=== PATIENT | male | born 1940 | race Caucasian/White ===

== ENCOUNTER 2020-02-26 11:18 | Emergency (ER) | payer MEDICARE, SELFPAY ==
[2020-02-26] VITALS (45 sets, daily range): BP systolic 112–156; BP diastolic 61–80; PULSE 56–69; RESP 10–20; TEMP 37.1; O2SAT 87–98
--- NOTE | 2020-02-26 | DI.RAD_ITS ---
EXAM: XR PORTABLE CHEST AP CLINICAL HISTORY: s/p thoro/ left lung cancer TECHNIQUE: 2D digital imaging was performed. COMPARISON: CT CT CHEST PE CTA from 02/26/2020 FINDINGS: MEDIASTINUM: Normal. HEART: Normal. PULMONARY VASCULATURE: Normal. LUNGS: No consolidation. Lungs hyperinflated consistent with underlying COPD. PLEURAL SPACE: No pleural effusion or pneumothorax. BONE:Normal. OTHER FINDINGS:Normal. IMPRESSION: No pneumothorax. DATA REPOSITORY: RADIATION DOSE DELIVERED:
--- NOTE | 2020-02-26 11:15 | RT.EKG_ITS ---
APPROVED REPORT Exam: Resting ECG Patient Location: E HR:65 bpm ECG Measurements Heart Rate 65 AXIS [place] 185 P 51 QRSd 97 QRS 6 QT 387 T 44 QTc 403 <Conclusion> Sinus rhythm...normal P axis, V-rate 60- 99 Probable left atrial enlargement...P >50mS, <-0.10mV V1 Low voltage, extremity and precordial leads...extremity<0.5mV, precordial<1.0mV. No acute ST elevation or depression.
--- NOTE | 2020-02-26 11:28 | ED.GENADUL_ITS ---
Discharge Plan Disposition Patient Disposition: HOME Condition: Improving Discharge Details Chief Complaint: SOB Clinical Impression: Recurrent left pleural effusion, Status post thoracentesis, History of lung cancer Primary Care Provider: Danielle,Local ED Provider: Ami Haney Home Meds and New Rx's Prescriptions: Continued Tagrisso 80 mg Tablet 80 mg PO DAILY RF: 0 pantoprazole 40 mg Tablet,Delayed Release (Dr/Ec) 40 mg PO DAILY RF: 0 ursodiol 250 mg Tablet 120 mg PO BID RF: 0 propranolol 120 mg Capsule,Extended Release 24 Hr 120 mg PO DAILY RF: 0 magnesium 30 mg Tablet 50 mg PO BID RF: 0 cholecalciferol (vitamin D3) [Vitamin D3] 25 mcg (1,000 unit) Capsule 1,000 unit PO DIRECTED RF: 0 sumatriptan succinate [Imitrex] 50 mg Tablet 50 mg PO PRN PRNRF: 0 loperamide [Imodium A-D] 2 mg Tablet 2 mg PO PRN PRNRF: 0 fexofenadine [Brigette Allergy] 180 mg Tablet 180 mg PO PRN PRNRF: 0 Discharge Instructions Instructions: Pleural Effusion (ED), Thoracentesis (DC) Additional Instructions: No lifting over 20 pounds or strenuous activity for the next 24 hours. No straining to have a bowel movement. You can take the Band-Aid off tomorrow and shower within 24 hours. You can apply ice to the affected area several times daily for 20 minutes at a time. You can take Tylenol as needed and directed for pain. Follow-up with Dr. Avila in the surgery office next Sunday at 9 AM. You can call her office with any questions or concerns at [phone]. Return immediately to the emergency department if you develop any worsening or concerning symptoms. Referrals: Narcisa Avila DO [OSTEOPATHIC DOCTOR] - Discharge Data Discharge Date/Time-TO BE ENTERED AT DEPARTURE: 02/26/20 17:20 Discharge Physician: Ami Haney Medical Decision Making 8080 -- 79-year-old male visiting from [place] since February 03 in quarantine for the past 14 days with a history of lung cancer treated with gene therapy Tagrisso for the past 9 months presents with dyspnea on exertion for the past week. Vitals within normal limits. Slightly diminished breath sounds left lung base. No leg edema. No signs of respiratory distress and speaking in full sentences. EKG on arrival notes a rate of 65, no acute ST ischemic changes. Differential diagnosis includes chronic shortness of breath associated with lung cancer, pleural effusion, ACS, PE, pneumonia, CHF. Will place an IV, screening labs, CT chest to rule out PE and reassess. 1445 --labs and imaging reviewed. Normal white blood cell count and hemoglobin. Troponin negative. CT chest negative for PE but does note a moderately large left-sided pleural effusion. Patient provided a report for a CAT scan of the chest in January 2020 from [place] which noted similar size of his left upper lobe lung lesion at 1.2 cm but a small left-sided pleural effusion at that time. As patient is hemodynamically stable and appears in no acute respiratory distress, do not see an indication for admission, however may benefit from bedside thoracentesis. Patient states he would prefer to go home and does not want to stay in the hospital. Case discussed with Dr. Avila who will come to the ED to perform this. After discussion with patient and , he is agreeable to stay for thoracentesis. 163 --Dr. Avila performed thoracentesis at bedside and removed 600 cc of fluid. Patient has significant relief of symptoms and is requesting to go home. Repeat chest x-ray no acute findings. Patient will follow-up with Dr. Avila in her office next Sunday at 9 AM. Usual and customary return precautions given prior to discharge. Medical Records Medical records reviewed: Yes I reviewed the patient's medical records. Imaging Data Radiologic Study: Radiologist's impression: CT CHEST PE CTA CLINICAL HISTORY: sob, h/o lung cancer. TECHNIQUE: Imaging Protocol: Axial CT angiography was performed with multi- slice acquisition and multi-planar and/or 3D reconstructions. CONTRAST MATERIAL: Intravenous: Omnipaque 350 Contrast volume:61 COMPARISON: No exams were available for comparison FINDINGS: Pulmonary Arteries: No evidence of filling defect to suggest pulmonary emboli. Tracheobronchial tree: Patent where visualized. Mediastinum and [place]: No dominant adenopathy or fluid collection. Pulmonary parenchyma: 1.2 cm spiculated mass in the left upper lobe. Atelectatic changes seen in the left lower lobe secondary to the patient's left pleural effusion. Pleura: Moderately large left pleural effusion with subjacent atelectasis. No pneumothorax. Heart: Mildly enlarged. Moderate coronary artery calcification. No significant pericardial effusion. Aorta: Thoracic aorta non-dilated. Atherosclerosis. No dissection. Upper abdomen: Unremarkable. Bones: Degenerative changes.Sclerotic focus in the T7 vertebral body. Soft tissues: Bilateral gynecomastia. IMPRESSION: 1. No evidence of pulmonary embolism, thoracic aortic dissection or aneurysm. 2. 1.2 cm spiculated mass in the left upper lobe consistent with the patient's known carcinoma. 3. Sclerotic focus in the T7 vertebral body. Bone island versus metastasis. Correlation with prior examinations is recommended. 4. Moderately large left pleural effusion with subjacent atelectasis. 5. The findings were discussed with the emergency department on the date of the examination. Lab Data Lab results reviewed: Yes I reviewed the patient's lab results. Labs: 02/26/20 16:00 Pleural Body Fluid Culture - Pending 02/26/20 16:00 Pleural Gram Stain - Final Laboratory Tests Range/Units 02/26/20 02/26/20 11:25 11:25 WBC (4.4-10.8) k/cumm 6.64 RBC (4.50-6.00) m/cumm 5.05 Hgb (13.5-17.5) g/dL 14.0 Hct (40.0-50.0) % 42.7 MCV (80-95) fL 84.6 MCH (27.0-33.0) pg 27.7 MCHC (32.0-36.0) g/dL 32.8 RDW (11.8-14.1) % 14.7 H Plt Count (130-400) x1000/uL 127 L MPV (8.0-11.0) fL 11.4 H Immature Gran % % 0.3 Neutrophils % 75.7 Lymphocytes % 12.0 Monocytes % 10.1 Eosinophils % 1.4 Basophils % 0.5 Absolute Neutrophils (1.2-6.7) k/cumm 5.03 Absolute Lymphocytes (1.2-3.4) k/cumm 0.80 L Absolute Monocytes (0.11-0.7) k/cumm 0.67 Absolute Eosinophils (0.0-0.7) k/cumm 0.09 Absolute Basophils (0.0-0.2) k/cumm 0.03 Sodium (136-145) mmol/L 139 Potassium (3.5-5.1) mmol/L 3.9 Chloride (98-107) mmol/L 105 Carbon Dioxide (21.0-32.0) mmol/L 25.6 Anion Gap (3-11) mmol/L 8.4 BUN (7-18) mg/dL 21 H Creatinine (0.70-1.30) mg/dL 1.50 H Estimated GFR/1.73 m2 (mL/min/1.73m2) 45.26 Glucose (74-106) mg/dL 103 Calcium (8.5-10.1) mg/dL 8.6 Magnesium (1.8-2.4) mg/dL 2.2 Total Bilirubin (0.2-1.0) mg/dL 0.9 AST (15-37) U/L 14 L ALT (16-63) U/L 13 L Alkaline Phosphatase (46-116) U/L 82 Troponin I (<0.06) ng/mL < 0.05 Total Protein (6.4-8.2) g/dL 6.8 Albumin (3.4-5.0) g/dL 3.4 ECG Data Attestation: I personally reviewed and interpreted this ECG (s) as follows: Interpretation: Rate of 65, sinus, no acute ST elevation or depression. [place] 185. QTc 4 3. QRS 97. HPI General Mode of arrival: ambulatory . Date/Time Provider Initiated Documentation: 02/26/20 11:25 . Limitations to Documentation: no limitations . Information obtained by: patient . HPI Narrative: Patient is a 79-year-old male with a history of lung cancer currently under gene therapy treatment with Tagrisso who presents to the emergency department for shortness of breath for the past week. He states that shortness of breath is worse with exertion and sometimes better with rest. He occasionally admits to chest tightness which is substernal and states is currently 1/10. He admits to an occasional dry cough but denies any fever. He also admits to diminished appetite over the past week. Patient states his lung cancer was diagnosed in April 2019 in [place]. He is being followed by his primary care doctor and oncologist in [facility]. He has been under the gene therapy treatment for the past 9 months. Patient states he had been doing well for the past several months without any complaint of shortness of breath until the last week. He states the car ride from [place] was approximately 11 hours long and states he took a break several ho urs in to stay overnight somewhere. He denies any leg pain or swelling or complaint of pleuritic chest pain. He also admits to a history of pleural effusion in May 2019 which was treated with thoracentesis. He states he came here from [place] February 03 and has been in quarantine for the first 14 days. He states his daughter recently traveled from [place] to visit him and tested negative for COVID. Related Data Home Medications Medication Instructions Recorded Confirmed Tagrisso 80 mg PO DAILY 02/26/20 02/26/20 cholecalciferol (vitamin D3) 1,000 unit PO DIRECTED 02/26/20 02/26/20 [Vitamin D3] fexofenadine [Brigette Allergy] 180 mg PO PRN PRN 02/26/20 02/26/20 loperamide [Imodium A-D] 2 mg PO PRN PRN 02/26/20 02/26/20 magnesium 50 mg PO BID 02/26/20 02/26/20 pantoprazole 40 mg PO DAILY 02/26/20 02/26/20 propranolol 120 mg PO DAILY 02/26/20 02/26/20 sumatriptan succinate [Imitrex] 50 mg PO PRN PRN 02/26/20 02/26/20 ursodiol 120 mg PO BID 02/26/20 02/26/20 Allergies Allergy/AdvReac Type Severity Reaction Status Date / Time No Known Allergies Allergy Unverified 02/26/20 11:27 General Stated Complaint: SOB BALDEMAR: 2 Review of Systems All systems reviewed & are unremarkable except as noted in HPI and below Constitutional Constitutional: Reports as per HPI, Denies chills and Denies fever(s) Eyes Eyes: Denies blurry vision ENT Ears, Nose, Mouth, and Throat: Denies dizziness, Denies sore throat and Denies throat swelling Cardiovascular Cardiovascular: Reports chest pain and Reports dyspnea Respiratory Respiratory: Denies cough and Reports dyspnea Gastrointestinal Gastrointestinal: Denies abdominal pain, Denies diarrhea and Denies vomiting Genitourinary Genitourinary: Denies hematuria and Denies dysuria Musculoskeletal Musculoskeletal: Denies back pain and Denies numbness Integumentary/Breasts Skin/Breast: Denies lesions and Denies rash Neurologic Neurologic: Denies dizziness, Denies localized weakness and Denies numbness Allergic/Immunologic Allergic/Immunologic: Denies throat swelling [facility] Medical History (Updated 02/26/20 @ 16:44 by Ami Haney DO) GERD (gastroesophageal reflux disease) (Chronic) Lung cancer (Chronic) Diagnosed April 2019 Pleural effusion (Acute) May 2019 treated with thoracocentesis Surgical History (Updated 02/26/20 @ 16:52 by Ami Haney DO) History of knee replacement (Chronic) Hx of cholecystectomy (Chronic) Social History (Updated 02/26/20 @ 12:41 by Ami Haney DO) Smoking/Tobacco Use Status: Former Tobacco Use Alcohol Intake: current Alcohol Intake frequency: a few times a week Alcohol type: wine Substance use type: does not use Details: quit smoking 60yrs ago Do you feel safe at home: Yes Do you feel safe in your relationship?: Yes Exam Const General: cooperative, healthy appearing and no acute distress HENMT Head: normal to inspection Face and sinus: normal facial exam Eyes General: appearance normal, both eyes and all related structures EOM: EOM intact bilaterally Neck Neck: normal visual inspection and No submandibular swelling Lymphatic: no lymphadenopathy noted Chest Chest: normal inspection of the chest and no tenderness Resp Effort & Inspection: normal respiratory effort and able to speak in complete sentences Auscultation: diminished lung sounds on the left in the lower lung kohler (slight compared to R side) Cardio Rate: regular rate Rhythm: regular rhythm GI Inspection: normal to inspection Palpation: soft, not firm, not rigid and nontender Auscultation: normal bowel sounds Back/Spine/Pelvis Pelvis: no pain with anterior-posterior compression Skin General skin exam: no rashes or lesions noted Neuro General: patient alert, patient awake and patient oriented x3 Cognition: normal cognition Speech: speech normal Motor: muscle tone normal throughout Sensory Exam: no sensory deficits noted Extrem General: normal to inspection, full ROM, capillary refill normal, no calf tenderness, no calf tenderness bilaterally and no edema Psych Appearance: grossly normal Mental Status: mental status grossly normal Speech and Movement: speech and movement normal Affect: normal affect Course Vital Signs Vital signs: Vital Signs Temperature 98.8 F 02/26/20 11:19 Pulse 69 02/26/20 11:19 Respiratory Rate 20 02/26/20 11:19 Blood Pressure 144/71 H 02/26/20 11:19 Pulse Oximetry 96 02/26/20 11:19 Temperature 98.8 F 02/26/20 11:19 Temperature Source Skin 02/26/20 11:19 Pulse 69 02/26/20 11:19 Respiratory Rate 20 02/26/20 11:19 Blood Pressure 144/71 H 02/26/20 11:19 Pulse Oximetry 96 02/26/20 11:19 Oxygen Delivery Method Room Air 02/26/20 11:19 Oxygen Flow Rate 0 02/26/20 11:19 Pain Level 3 02/26/20 11:19 Comment 02/26/20 11:19
[2020-02-26 11:46] LABS: Abs Immature Grans 0.02 k/cumm (0.0-0.09); Absolute Basophil Count 0.03 k/cumm (0.0-0.2); Absolute Eosinophil Count 0.09 k/cumm (0.0-0.7); Absolute Monocyte Count 0.67 k/cumm (0.11-0.7); Absolute Neutrophil Count 5.03 k/cumm (1.2-6.7); Basophils % 0.5; Eosinophils % 1.4; HCT 42.7 % (40.0-50.0); Immature Grans % 0.3 %; Mean Corp. HGB Concentration 32.8 g/dL (32.0-36.0); Mean Corpuscular Hemoglobin 27.7 pg (27.0-33.0); Mean Corpuscular Volume 84.6 fL (80-95); Mean Platelet Volume 11.4 fL (8.0-11.0); Monocytes % 10.1; Neutrophils % 75.7; Platelet Count 127 x1000/uL (130-400); RBC 5.05 m/cumm (4.50-6.00); RBC Distribution Width 14.7 % (11.8-14.1); White Blood Cell Count 6.64 k/cumm (4.4-10.8)
[2020-02-26 12:07] LABS: ALT 13 U/L (16-63); AST 14 U/L (15-37); Albumin 3.4 g/dL (3.4-5.0); Alkaline Phosphatase 82 U/L (46-116); Anion Gap 8.4 mmol/L (3-11); BUN 21 mg/dL (7-18); Bilirubin, Total 0.9 mg/dL (0.2-1.0); CO2 25.6 mmol/L (21.0-32.0); Calcium 8.6 mg/dL (8.5-10.1); Chloride 105 mmol/L (98-107); Estimated GFR 45.26 (mL/min/1.73m2); Glucose 103 mg/dL (74-106); Magnesium 2.2 mg/dL (1.8-2.4); Potassium 3.9 mmol/L (3.5-5.1); Sodium 139 mmol/L (136-145); Total Protein 6.8 g/dL (6.4-8.2)
[2020-02-26 12:11] LABS: Troponin I < 0.05 ng/mL (<0.06)
--- NOTE | 2020-02-26 12:30 | DI.CT_ITS ---
EXAM: CT CHEST PE CTA CLINICAL HISTORY: sob, h/o lung cancer. TECHNIQUE: Imaging Protocol: Axial CT angiography was performed with multi-slice acquisition and mu lti-planar and/or 3D reconstructions. CONTRAST MATERIAL: Intravenous: Omnipaque 350 Contrast volume:61 COMPARISON: No exams were available for comparison FINDINGS: Pulmonary Arteries: No evidence of filling defect to suggest pulmonary emboli. Tracheobronchial tree: Patent where visualized. Mediastinum and [place]: No dominant adenopathy or fluid collection. Pulmonary parenchyma: 1.2 cm spiculated mass in the left upper lobe. Atelectatic changes seen in the left lower lobe secondary to the patient's left pleural effusion. Pleura: Moderately large left pleural effusion with subjacent atelectasis. No pneumothorax. Heart: Mildly enlarged. Moderate coronary artery calcification. No significant pericardial effusion . Aorta: Thoracic aorta non-dilated. Atherosclerosis. No dissection. Upper abdomen: Unremarkable. Bones: Degenerative changes.Sclerotic focus in the T7 vertebral body. Soft tissues: Bilateral gynecomastia. IMPRESSION: 1. No evidence of pulmonary embolism, thoracic aortic dissection or aneurysm. 2. 1.2 cm spiculated mass in the left upper lobe consistent with the patient's known carcinoma. 3. Sclerotic focus in the T7 vertebral body. Bone island versus metastasis. Correlation with prior examinations is recommended. 4. Moderately large left pleural effusion with subjacent atelectasis. 5. The findings were discussed with the emergency department on the date of the examination. RADIATION DOSE DELIVERED: Total DLP DATA REPOSITORY: All CT scans at this facility are submitted to the National Radiology Data Registry (NRDR) Dose Index Registry (DIR) with the [employer] (ACR). RADIATION OPTIMIZATION: All CT scans at this facility use at least one of these dose optimization te chniques: automated exposure control; mA and/or kV adjustment per patient size (includes targeted exa ms where dose is matched to clinical indication); or iterative reconstruction.
[2020-02-26] MEDS: Omnipaque 350 MG/ML 100 ML BTL IJ (12:57)
[2020-02-26] MEDS: Normal Saline 500 ML IV (13:16)
--- NOTE | 2020-02-26 16:00 | PAPNONF_PTH ---
PATIENT: ABE RAI LOC: [facility] U#:[id number] AGE/SX: 79/M ROOM: RE02/26/[address]: Ami Haney : 1940 BED: DIS: 02/26/2020 SPEC #: [id number] RECD: 02/26/20 17:45 STATUS: VALENTE REQ #: [id number] KESHAWN: 02/26/20 16:[address]: Ami Haney DEPT: [facility] Cytology RECD BY: Felisha Serrato ENTERED: 02/26/20 17:46 SP TYPE: JEANINE POP DR: No Local Tissues: 1 - BODY FLUID CYTO(NOT S/U/N/EM)[facility] Procedures: BODY FLUID CYTO(NOT SPU/UR/NIP/ENDOM)[facility] Comments: [id number] (TOTAL VOLUME = 50 ml's ~ SENT FRESH)
--- NOTE | 2020-02-26 16:43 | DI.VRAD_ITS ---
PROCEDURE INFORMATION: Exam: XR Chest, 1 View Exam date and time: 02/26/2020 4:17 PM Age: 79 years old Clinical indication: Device placement; Chest tube; Prior surgery; Patient HX: Has lung CA TECHNIQUE: Imaging protocol: XR of the chest Views: 1 view. COMPARISON: CT CHEST PE CTA 02/26/2020 12:51 PM FINDINGS: Lungs: Lungs hyperinflated suggestive of COPD. No consolidation. Pleural space: Unremarkable. No pleural effusion. No pneumothorax. Heart/Mediastinum: Unremarkable. No cardiomegaly. Bones/joints: Unremarkable. IMPRESSION: COPD Dictated and Authenticated by: Gerson Jordan MD. Ordering:GEORGETTE Brewster MD
--- NOTE | 2020-02-26 16:50 | W.SURGCON ---
Date of service: 02/26/20 Time of Service: 16:51 Assessment and Plan Assessment and plan (1) Recurrent left pleural effusion: Status: Acute Assessment and plan: will send fluid for cytology 600cc bloody fluid removed today. will review pt care in office f/u and make sure he is oncologist is aware. pt did have a CT done today- but there is too much fluid to view the tumor. Will review when he had last PET. Repeat may be warranted vs repeat CT once the fluid is removed. Will have repeat CXR prior to office visit. (2) History of lung cancer: Status: Acute History of Present Illness Narrative: pt has a hx of lung cancer. He is a former smoker. He was Dg and treated lastsu/fall. Stage 4. He does not know type or results of last PET scan. He is on tagrisso - immunomodulator. He denies rash/mouth pain. He has no abominal pain. He has some mild diarrhea off and on. No more than 2-3/dya and no blood. No wrose than usual. he has been eating. When first diagnosed- he had problems w/ pleural effusions and had PluerX cath in at one point for home drianage. He has not had to do that since June. He comes to the ED today c/o SOB. no covid exposure that he is aware of. No cough/fevers/loss of taste. Consults Requesting physician: Ami Haney Review of Systems All systems reviewed & are unremarkable except as noted in HPI and below PFSH Medical History GERD (gastroesophageal reflux disease) (Chronic) Lung cancer (Chronic) Diagnosed April 2019 Pleural effusion (Acute) May 2019 treated with thoracocentesis Surgical History History of knee replacement (Chronic) Hx of cholecystectomy (Chronic) Social History Smoking/Tobacco Use Status: Former Tobacco Use Alcohol Intake: current Alcohol Intake frequency: a few times a week Alcohol type: wine Substance use type: does not use Details: quit smoking 60yrs ago Do you feel safe at home: Yes Do you feel safe in your relationship?: Yes Exam Const General: cooperative, healthy appearing, comfortable, no acute distress, well developed and well groomed Nutritional Appearance: average body habitus and well nourished Orientation: alert, awake and oriented x3 [facility] Head: normal to inspection, normocephalic and atraumatic Ears: hearing grossly normal bilaterally and external ears normal General nose exam: external nose normal Face and sinus: normal facial exam and sinuses nontender Mouth: oral mucosae normal, lip normal, tongue normal and moist mucous membranes Teeth and gingiva: dentition normal Eyes General: appearance normal, both eyes and all related structures Conjunctivae: conjunctivae normal Sclera: sclerae normal Pupils: PERRL Neck Neck: normal visual inspection and full ROM Chest Chest: abnormal inspection of the chest Other: Post Sx changes noted. Resp Effort & Inspection: normal respiratory effort, able to speak in complete sentences, no cough, no nasal flaring, not tachypneic and no use of accessory muscles Auscultation: breath sounds absent on th left, no rales, no rhonchi and no wheezes Other: clear on right. post sx changes noted. Cardio Jugular venous pressure: no JVD Rate: regular rate Rhythm: regular rhythm GI Inspection: normal to inspection, no edema and non-distended Palpation: soft, no masses, nontender and No ascites Auscultation: normal bowel sounds Skin General skin exam: no rashes or lesions noted Trauma: no lacerations or abrasions Neuro General: patient alert, patient oriented x3, oriented, gait normal, moves all extremities, no focal motor deficits and CN's II-XI intact bilaterally Cognition: normal cognition Speech: speech normal Gait: normal gait Motor: muscle tone normal throughout Extrem General: normal to inspection, full ROM and no clubbing, cyanosis or edema Other: change sin joints consistent w/ mild OA. Psych Appearance: grossly normal and well kempt Mental Status: mental status grossly normal Speech and Movement: speech and movement normal Affect: normal affect Results Last Vital Signs Temp 37.1 C 02/26/20 11:19 Pulse 56 L 02/26/20 16:13 Resp 11 L 02/26/20 12:31 BP 146/72 H 02/26/20 16:14 Pulse Ox 97 02/26/20 16:20 Labs Result diagrams: 02/26/20 11:25 02/26/20 11:25 Labs: Laboratory Results - last 24 hr 02/26/20 02/26/20 11:25 11:25 WBC 6.64 RBC 5.05 Hgb 14.0 Hct 42.7 MCV 84.6 MCH 27.7 MCHC 32.8 RDW 14.7 H Plt Count 127 L MPV 11.4 H Immature Gran % 0.3 Neutrophils % 75.7 Lymphocytes % 12.0 Monocytes % 10.1 Eosinophils % 1.4 Basophils % 0.5 Absolute Neutrophils 5.03 Absolute Lymphocytes 0.80 L Absolute Monocytes 0.67 Absolute Eosinophils 0.09 Absolute Basophils 0.03 Sodium 139 Potassium 3.9 Chloride 105 Carbon Dioxide 25.6 Anion Gap 8.4 BUN 21 H Creatinine 1.50 H Estimated GFR/1.73 m2 45.26 Glucose 103 Calcium 8.6 Magnesium 2.2 Total Bilirubin 0.9 AST 14 L ALT 13 L Alkaline Phosphatase 82 Troponin I < 0.05 Total Protein 6.8 Albumin 3.4
--- NOTE | 2020-02-26 16:51 | W.PM.OP ---
Date of service: 02/26/20 Time of Service: 16:51 Operative Note Operative Note DATE OF PROCEDURE: 02/26/20 PRE-OP DIAGNOSIS: Left-sided lung cancer. Recurrent pleural effusion POST-OP DIAGNOSIS: other PROCEDURE: Left thoracentesis SURGEON: Narcisa Avila ANESTHESIA: local Patient was transported to: no change Patient's condition: stable Procedure Description: . Chest x-ray was reviewed prior to beginning the procedure and shows about 1 L of fluid in the left chest. Informed consent was obtained explaining risks and benefits of the procedure, including but not limited to bleeding, infection, pneumothorax, recurrence, complications of anesthesia, and other unforetold complications. PROCEDURE: The patient is brought to the procedure room and placed in the seated position. Ultrasound is used to localize the pocket on the left chest. The area is marked and then prepped and draped in the usual sterile fashion using a ChloraPrep scrub solution. 10 cc's of 1% Lidocaine is used to anesthetize the T10 interspace. The small margot is made with a #11 blade. The needle and catheter is then inserted over the top of the rib, aspirating as it is inserted. The needle is then removed. The catheter is then hooked up to the Vacutainer system and 600 cc's of bloody fluid is evacuated. The catheter is removed; pressure is held. Sterile compression dressing is applied. Fluid is sent for cytology. Portable chest x-ray shows no pneumothorax and resolution of the effusion. Pt is given instructions in wound care, activity, medications, and warning signs: SOB, increasing in pain, chest pain, redness or temperature- if these occur, come to ED. pt will f/u w/ my office next week. We can arrange the information to be sent to his oncology team- he is here from [place] for the summer. He is on a IM for lung CA. His tumor has been improving. He denies any stomatits/rash/diarrhea. His CXR shows no signs of pneumatitis. he has not had an effusion since last June. F/u in my office next Sunday.
== END 2020-02-26 17:20 | disposition home or self-care (01) ==
PROVIDERS: Emergency Provider Physician Assistant
DX: C34.92 Malignant neoplasm of unspecified part of left bronchus or lung (principal); J91.0 Malignant pleural effusion; Z79.899 Other long term (current) drug therapy; Z98.890 Other specified postprocedural states; Z87.891 Personal history of nicotine dependence
CPT/HCPCS: 32554; 32555; 36415; 71275; 80053; 93005; 96360; 99252; 99282; 99285; 71045; 83735; 84484; 85025; 87070; 87205; 88104; 93010; J3490

== ENCOUNTER 2020-03-03 02:11 | Outpatient (CLI) | payer MEDICARE, SELFPAY ==
--- NOTE | 2020-03-03 12:42 | DI.RAD_ITS ---
EXAM: XR CHEST 2V PA LATERAL CLINICAL HISTORY: F/U,S/P THORACENTESIS,RECURRENT LT PLEURAL EFFUSION,Z98.890,J90,Z85.118 TECHNIQUE: 2D digital imaging was performed. COMPARISON: CR,XR XR PORTABLE CHEST AP from 02/26/[address] CHEST PE CTA from 02/26/2020 FINDINGS: MEDIASTINUM: Normal. HEART: Normal. PULMONARY VASCULATURE: Normal. LUNGS: Clear. PLEURAL SPACE: There is a small left pleural effusion. No right pleural effusion. No pneumothorax. BONE:Normal. IMPRESSION: Small left pleural effusion. No evidence of pneumothorax. DATA REPOSITORY: RADIATION DOSE DELIVERED:
== END 2020-03-03 02:31 ==
PROVIDERS: Visit Provider Surgery
DX: Z85.118 Personal history of other malignant neoplasm of bronchus and lung; Z98.890 Other specified postprocedural states; J91.0 Malignant pleural effusion; C34.90 Malignant neoplasm of unspecified part of unspecified bronchus or lung; J90 Pleural effusion, not elsewhere classified
CPT/HCPCS: 99212; 99213; 71046